=== PATIENT | female | born 1945 | race Two or more races ===

== ENCOUNTER 2016-12-20 20:01 | Inpatient (IN) | payer MEDICARE, OTHER ==
[~2016-12-20] VITALS: Ht 167.6 cm; Wt 63.2 kg
[2016-12-20 22:13] LABS: Basophils # (auto) 0 uL; Basophils % (auto) 0.2 % (0.0-2.0); Eosinophils # (auto) 0 uL; Eosinophils % (auto) 0.1 % (0.0-7.0); Lymphocytes # (auto) 0.9 uL; Lymphocytes % (auto) 5.3 % (10.0-50.0); Monocytes # (auto) 0.8 uL; Monocytes % (auto) 4.4 % (0.0-12.0); Neutrophils # (auto) 15.7 uL; White Blood Cell 17.4 10^3/uL (4.4-10.8)
[2016-12-20 22:18] LABS: Hematocrit 37.7 % (36.0-46.0); Hemoglobin 12.9 g/dL (12.2-16.2); Mean Corpuscular Hemoglobin 30.2 pg (28.0-32.0); Mean Corpuscular Hgb Conc. 34.3 g/dL (32.0-36.0); Mean Corpuscular Volume 88.1 fL (80.0-100.0); Mean Platelet Volume 7.2 fL (6.9-10.8); Platelet Count (auto) 212 10^3/uL (140-450); Red Cell Distribution Width 13.7 % (11.8-14.3)
[2016-12-20 22:36] LABS: Albumin 3.7 g/dL (3.4-5.0); BUN/Creatinine Ratio 13.2; Bilirubin, Total 0.3 mg/dL (0.2-1.0); Calcium 9.1 mg/dL (8.5-10.1); Potassium 3.7 mmol/L (3.5-5.1); Total Protein 8.1 g/dL (6.4-8.2)
[2016-12-20 23:57] LABS: INR 0.95 (0.9-1.15); Partial Thromboplastin Time 24.5 sec (22.64-33.71); Prothrombin Time 10.4 sec (9.37-12.3)
[2016-12-21] MEDS ORDERED: IOHEXOL 300 MG/ML 100ML BOTTLE IJ ONE ×2 (00:07→18:13)
[2016-12-21] MEDS ORDERED: ONDANSETRON HCL 4 MG/2 ML VIAL IV ONE (01:30)
[2016-12-21] MEDS ORDERED: ACETAMINOPHEN 325 MG TAB PO ONE (01:30)
[2016-12-21 01:36] LABS: Urine Bilirubin Negative (Negative); Urine Blood 2+ /uL (Negative); Urine Color Yellow (Yellow); Urine Glucose Normal (Normal); Urine Ketone Negative (Negative); Urine Mucus FEW (None Seen); Urine Nitrite Negative (Negative); Urine RBC 225 /hpf (0 - 4); Urine Urobilinogen Normal (Negative)
[2016-12-21] MEDS ORDERED: SODIUM CHLORIDE 0.9% 250 ML IV ONE (01:45)
[2016-12-21] MEDS ORDERED: SODIUM CHLORIDE 0.9% 1,000 ML IV ONE ×2 (01:45)
[2016-12-21] MEDS ORDERED: cefTRIAXone 1GM/50ML D5W 50 ML IV ONE (02:00)
[2016-12-21 03:50] LABS: Lactic Acid w/Reflex 4.5 mmol/L (0.4-2.0)
[2016-12-21 03:52] LABS: REFLEX LACTIC ACID YES OR NO YES
[2016-12-21] MEDS ORDERED: PIPERACILLIN-TAZOB 3.375GM 100 ML IV ONE (08:45)
[2016-12-21] MEDS ORDERED: HYDROcodone-ACET 5/325MG TAB PO PRN ×2 (08:45→09:15)
[2016-12-21] MEDS ORDERED: PROMETHAZINE HCL 25 MG/ML 1ML IV PRN (08:45)
[2016-12-21] MEDS ORDERED: TEMAZEPAM 15 MG CAP PO PRN (08:45)
[2016-12-21] MEDS ORDERED: ACETAMINOPHEN 500 MG TAB PO PRN (08:45)
[2016-12-21] MEDS ORDERED: LORazepam 0.5 MG TAB PO PRN (08:45)
[2016-12-21] MEDS ORDERED: MORPHINE SULF INJ 2 MG/ML SYRINGE 1ML IV PRN ×2 (08:45)
[2016-12-21] MEDS ORDERED: NITROGLYCERIN 0.4 MG SL TAB SL PRN (08:45)
[2016-12-21] MEDS ORDERED: BISACODYL 10 MG RECT SUPP PR PRN (09:00)
[2016-12-21] MEDS ORDERED: BACLOFEN 10 MG TAB PO PRN (09:00)
[2016-12-21] MEDS ORDERED: MILK OF MAGNESIA 30ML SUSP PO PRN (09:00)
[2016-12-21] MEDS ORDERED: ARTIFICIAL TEARS 15ml EACHEYE PRN (09:15)
[2016-12-21] MEDS ORDERED: ACETAMINOPHEN 650 mg PER 20 mL UD PO PRN (09:15)
[2016-12-21] MEDS ORDERED: LACTULOSE 20Gm/30ML SOLN PO PRN ×2 (09:15)
[2016-12-21] MEDS ORDERED: BIOT1CAP OR (09:22)
[2016-12-21] MEDS ORDERED: BACL20TA PO (09:22)
[2016-12-21] MEDS ORDERED: ASCO500T11 PO (09:22)
[2016-12-21] MEDS ORDERED: FAM20T PO (09:22)
[2016-12-21] MEDS ORDERED: D-MAPOW8 OR (09:22)
[2016-12-21] MEDS ORDERED: DIAZ2TAB PO (09:22)
[2016-12-21] MEDS ORDERED: CALCTAB5 OR (09:22)
[2016-12-21] MEDS: SODIUM CHLORIDE 0.9% 1,000 ML IV SCH ×2 (09:40→18:51)
[2016-12-21] MEDS: CALCIUM W/VIT D (600MG/400IU) TAB PO SCH ×2 (09:40→20:23)
[2016-12-21] MEDS: FLUTICASONE PROP NASAL SPR 0.05 % (50MCG) 16GM EACHNOSTRI SCH (09:40)
[2016-12-21] MEDS: ASCORBIC ACID 500 MG TAB PO SCH ×2 (09:40→20:23)
[2016-12-21] MEDS: MULTIPLE VITAMINS W/ MINERALS TAB PO SCH (09:40)
[2016-12-21] MEDS: FAMOTIDINE (10MG/ML) 2ML VL IV SCH ×2 (09:40→20:23)
[2016-12-21 11:15] VITALS: BP 110/56
[2016-12-21 13:51] VITALS: BP 107/59
[2016-12-21] MEDS: DIAZEPAM 2 MG TAB PO SCH ×2 (14:15→20:23)
[2016-12-21] MEDS: PIPERACILLIN-TAZOB 3.375GM 100 ML IV SCH ×2 (14:29→20:23)
[2016-12-21] MEDS ORDERED: LIDOCAINE 2%HCL (LOCAL ANESTH.) INJ 20ML MDV ONE (17:05)
[2016-12-21] MEDS ORDERED: fentaNYL Drip 2500mCg/250mlNS 250 ML IV ONE (17:23)
[2016-12-21 17:26] VITALS: BP 117/61
[2016-12-21 18:50] VITALS: BP 114/82
[2016-12-21 22:00] VITALS: BP 111/53
[2016-12-22] MEDS: PIPERACILLIN-TAZOB 3.375GM 100 ML IV SCH ×4 (03:27→21:53)
[2016-12-22 04:37] VITALS: BP 128/60
[2016-12-22] MEDS: SODIUM CHLORIDE 0.9% 1,000 ML IV SCH (04:59)
[2016-12-22] MEDS: DIAZEPAM 2 MG TAB PO SCH (06:21)
[2016-12-22 06:23] LABS: Hematocrit 26.8 % (36.0-46.0); Mean Corpuscular Hemoglobin 30.7 pg (28.0-32.0); Mean Corpuscular Hgb Conc. 33.7 g/dL (32.0-36.0); Mean Corpuscular Volume 91.1 fL (80.0-100.0); Mean Platelet Volume 7.1 fL (6.9-10.8); Platelet Count (auto) 110 10^3/uL (140-450); Red Cell Distribution Width 14.2 % (11.8-14.3)
[2016-12-22 06:33] LABS: Promyelocytes % 0; Reactive Lymphocytes 0
[2016-12-22 06:59] LABS: Calcium 7.5 mg/dL (8.5-10.1); Potassium 3.4 mmol/L (3.5-5.1)
[2016-12-22 07:03] LABS: Albumin 2.3 g/dL (3.4-5.0); BUN/Creatinine Ratio 13.2
[2016-12-22 07:05] LABS: Bilirubin, Total 0.4 mg/dL (0.2-1.0); Total Protein 5.9 g/dL (6.4-8.2)
[2016-12-22 08:33] VITALS: BP 129/62
[2016-12-22 09:04] LABS: Metamyelocytes % 1; Myelocytes % 1; Platelet Estimate Decreased
[2016-12-22] MEDS: CALCIUM W/VIT D (600MG/400IU) TAB PO SCH ×2 (10:04→21:54)
[2016-12-22] MEDS: FAMOTIDINE (10MG/ML) 2ML VL IV SCH ×2 (10:04→21:53)
[2016-12-22] MEDS: FLUTICASONE PROP NASAL SPR 0.05 % (50MCG) 16GM EACHNOSTRI SCH (10:05)
[2016-12-22] MEDS: MULTIPLE VITAMINS W/ MINERALS TAB PO SCH (10:05)
[2016-12-22] MEDS: ASCORBIC ACID 500 MG TAB PO SCH ×2 (10:05→21:54)
[2016-12-22] MEDS ORDERED: VANCOMYCIN PER PHARMACY 0 MG IV SCH (10:45)
[2016-12-22] MEDS ORDERED: SOD CHL 0.9%/ KCL 20MEQ 1,000 ML IV SCH (10:45)
[2016-12-22] MEDS ORDERED: SODIUM BICARBONATE 50ML VIAL 50 ML in SOD CHL 0.45% WITH 20MEQ KCL 1,000 ML IV SCH (11:00)
[2016-12-22] MEDS ORDERED: HYOSCYAMINE SULF 0.125 MG TAB SL PRN (11:15)
[2016-12-22] MEDS ORDERED: ONDANSETRON HCL 4 MG/2 ML VIAL IV PRN (11:15)
[2016-12-22] MEDS ORDERED: LORazepam 2MG/ML-1ML VIAL IV PRN (11:15)
[2016-12-22] MEDS ORDERED: DIAZEPAM 2 MG TAB PO PRN (12:00)
[2016-12-22] MEDS: BOOST PLUS 8 ounce PO SCH ×2 (12:00→18:00)
[2016-12-22] MEDS: VANCOMYCIN 1,250 MG in D5W 5% 250 ML IV SCH (12:38)
[2016-12-22 13:00] VITALS: BP 125/59
[2016-12-22 16:37] VITALS: BP 135/65
[2016-12-22 20:00] VITALS: BP 142/72
[2016-12-23] MEDS: PIPERACILLIN-TAZOB 3.375GM 100 ML IV SCH ×4 (03:40→21:53)
[2016-12-23 06:16] VITALS: BP 157/84
[2016-12-23] MEDS: BOOST PLUS 8 ounce PO SCH ×3 (08:00→17:40)
[2016-12-23 08:32] LABS: Basophils # (auto) 0 uL; Basophils % (auto) 0.2 % (0.0-2.0); Eosinophils # (auto) 0.4 uL; Eosinophils % (auto) 1.7 % (0.0-7.0); Hematocrit 26.3 % (36.0-46.0); Lymphocytes # (auto) 1.2 uL; Lymphocytes % (auto) 5.1 % (10.0-50.0); Mean Corpuscular Hemoglobin 30.4 pg (28.0-32.0); Mean Corpuscular Hgb Conc. 34.3 g/dL (32.0-36.0); Mean Corpuscular Volume 88.5 fL (80.0-100.0); Mean Platelet Volume 7.7 fL (6.9-10.8); Monocytes # (auto) 0.7 uL; Monocytes % (auto) 3.3 % (0.0-12.0); Neutrophils # (auto) 20.3 uL; Neutrophils % (auto) 89.7 % (37.0-80.0); Platelet Count (auto) 114 10^3/uL (140-450); Red Cell Distribution Width 13.9 % (11.8-14.3); White Blood Cell 22.6 10^3/uL (4.4-10.8)
[2016-12-23 08:56] LABS: Albumin 2.4 g/dL (3.4-5.0); BUN/Creatinine Ratio 15.5; Bilirubin, Total 0.5 mg/dL (0.2-1.0); Calcium 8.4 mg/dL (8.5-10.1); Phosphorus 1.5 mg/dL (2.5-4.90); Potassium 3.1 mmol/L (3.5-5.1); Total Protein 6.1 g/dL (6.4-8.2); Uric Acid 4.1 mg/dL (2.6-6.0)
[2016-12-23 09:00] VITALS: BP 148/76
[2016-12-23] MEDS: FAMOTIDINE (10MG/ML) 2ML VL IV SCH ×2 (10:34→21:53)
[2016-12-23] MEDS: ASCORBIC ACID 500 MG TAB PO SCH ×2 (10:34→21:53)
[2016-12-23] MEDS: CALCIUM W/VIT D (600MG/400IU) TAB PO SCH ×2 (10:34→21:53)
[2016-12-23] MEDS: MULTIPLE VITAMINS W/ MINERALS TAB PO SCH (10:34)
[2016-12-23] MEDS: SODIUM BICARBONATE 50ML VIAL 50 ML in SOD CHL 0.45% WITH 20MEQ KCL 1,000 ML IV SCH ×2 (10:56→18:03)
[2016-12-23 12:00] VITALS: BP 146/73
[2016-12-23] MEDS: POTASSIUM CHL 20 Meq TABLET PO SCH ×2 (13:35→17:39)
[2016-12-23] MEDS: FLUTICASONE PROP NASAL SPR 0.05 % (50MCG) 16GM EACHNOSTRI SCH (14:57)
[2016-12-23 17:35] VITALS: BP 148/72
[2016-12-23 20:59] VITALS: BP 157/78
[2016-12-24] MEDS: VANCOMYCIN 1,250 MG in D5W 5% 250 ML IV SCH (00:35)
[2016-12-24 05:34] VITALS: BP 155/73
[2016-12-24] MEDS: PIPERACILLIN-TAZOB 3.375GM 100 ML IV SCH ×3 (07:00→18:58)
[2016-12-24] MEDS: BOOST PLUS 8 ounce PO SCH ×3 (08:00→18:11)
[2016-12-24 08:23] LABS: Albumin 2.3 g/dL (3.4-5.0); Bilirubin, Total 0.6 mg/dL (0.2-1.0); Calcium 8.6 mg/dL (8.5-10.1); Total Protein 6.1 g/dL (6.4-8.2)
[2016-12-24 08:43] VITALS: BP 157/77
[2016-12-24] MEDS: CALCIUM W/VIT D (600MG/400IU) TAB PO SCH ×2 (10:03→21:56)
[2016-12-24] MEDS: MULTIPLE VITAMINS W/ MINERALS TAB PO SCH (10:03)
[2016-12-24] MEDS: DOCUSATE SOD 100 MG CAP PO PRN (10:03)
[2016-12-24] MEDS: FAMOTIDINE (10MG/ML) 2ML VL IV SCH ×2 (10:03→21:56)
[2016-12-24] MEDS: ASCORBIC ACID 500 MG TAB PO SCH ×2 (10:03→21:57)
[2016-12-24] MEDS: SODIUM BICARBONATE 50ML VIAL 50 ML in SOD CHL 0.45% WITH 20MEQ KCL 1,000 ML IV SCH ×2 (10:04→18:53)
[2016-12-24] MEDS: FLUTICASONE PROP NASAL SPR 0.05 % (50MCG) 16GM EACHNOSTRI SCH (11:26)
[2016-12-24 12:01] VITALS: BP 158/80
[2016-12-24 16:33] VITALS: BP 152/79
[2016-12-24 22:00] VITALS: BP 154/77
[2016-12-25] MEDS: PIPERACILLIN-TAZOB 3.375GM 100 ML IV SCH ×4 (01:10→18:54)
[2016-12-25] MEDS: SODIUM BICARBONATE 50ML VIAL 50 ML in SOD CHL 0.45% WITH 20MEQ KCL 1,000 ML IV SCH ×2 (04:45→15:28)
[2016-12-25 05:00] VITALS: BP 158/81
[2016-12-25 07:21] LABS: Basophils # (auto) 0 uL; Basophils % (auto) 0.4 % (0.0-2.0); Eosinophils # (auto) 0.2 uL; Eosinophils % (auto) 2.3 % (0.0-7.0); Hematocrit 29.1 % (36.0-46.0); Lymphocytes # (auto) 1.4 uL; Lymphocytes % (auto) 13.4 % (10.0-50.0); Mean Corpuscular Hemoglobin 30.6 pg (28.0-32.0); Mean Corpuscular Hgb Conc. 34.5 g/dL (32.0-36.0); Mean Corpuscular Volume 88.9 fL (80.0-100.0); Mean Platelet Volume 7.7 fL (6.9-10.8); Monocytes # (auto) 0.8 uL; Monocytes % (auto) 7.9 % (0.0-12.0); Neutrophils # (auto) 7.9 uL; Platelet Count (auto) 169 10^3/uL (140-450); Red Cell Distribution Width 13.6 % (11.8-14.3); White Blood Cell 10.4 10^3/uL (4.4-10.8)
[2016-12-25 07:29] LABS: INR 0.94 (0.9-1.15); Partial Thromboplastin Time 25.2 sec (22.64-33.71); Prothrombin Time 10.2 sec (9.37-12.3)
[2016-12-25 07:47] LABS: Albumin 2.5 g/dL (3.4-5.0); BUN/Creatinine Ratio 11.5; Bilirubin, Total 0.7 mg/dL (0.2-1.0); Potassium 3.7 mmol/L (3.5-5.1); Total Protein 6.7 g/dL (6.4-8.2)
[2016-12-25] MEDS: BOOST PLUS 8 ounce PO SCH ×3 (08:00→17:44)
[2016-12-25 08:50] VITALS: BP 155/71
[2016-12-25] MEDS ORDERED: fentaNYL CITRATE 100 MCG/2 ML VL ONE (09:09)
[2016-12-25] MEDS ORDERED: ONDANSETRON HCL 4 MG/2 ML VIAL ONE (09:09)
[2016-12-25] MEDS ORDERED: MIDAZOLAM HCL 1MG/1ML-2 ML VIAL ONE (09:09)
[2016-12-25] MEDS ORDERED: SODIUM CHLORIDE LOCK 10 ML ONE (09:09)
[2016-12-25] MEDS ORDERED: PROPOFOL 10 MG/ML 20 ML IV ONE (09:09)
[2016-12-25] MEDS: ASCORBIC ACID 500 MG TAB PO SCH ×2 (10:00→22:38)
[2016-12-25] MEDS: FAMOTIDINE (10MG/ML) 2ML VL IV SCH ×2 (10:00→22:38)
[2016-12-25] MEDS: FLUTICASONE PROP NASAL SPR 0.05 % (50MCG) 16GM EACHNOSTRI SCH (10:00)
[2016-12-25] MEDS: MULTIPLE VITAMINS W/ MINERALS TAB PO SCH (10:00)
[2016-12-25] MEDS: CALCIUM W/VIT D (600MG/400IU) TAB PO SCH ×2 (10:00→22:39)
[2016-12-25] MEDS ORDERED: METOCLOPRAMIDE HCL 5MG/ml INJ 2ml VIAL IV ONE (10:30)
[2016-12-25] MEDS ORDERED: fentaNYL CITRATE 100 MCG/2 ML VL IV ONE (11:00)
[2016-12-25] MEDS: VANCOMYCIN 1,250 MG in D5W 5% 250 ML IV SCH (12:45)
[2016-12-25 12:59] VITALS: BP 155/88
[2016-12-25] MEDS ORDERED: METOPROLOL TARTRATE 25 MG TAB PO ONE (15:45)
[2016-12-25 17:04] VITALS: BP 131/65
[2016-12-25 21:25] VITALS: BP 156/69
[2016-12-25] MEDS: DOCUSATE SOD 100 MG CAP PO PRN (22:39)
[2016-12-26] MEDS: PIPERACILLIN-TAZOB 3.375GM 100 ML IV SCH ×4 (01:00→19:02)
[2016-12-26] MEDS: SODIUM BICARBONATE 50ML VIAL 50 ML in SOD CHL 0.45% WITH 20MEQ KCL 1,000 ML IV SCH ×3 (01:45→22:49)
[2016-12-26 05:33] VITALS: BP 140/71
[2016-12-26] MEDS: BOOST PLUS 8 ounce PO SCH ×3 (08:41→18:24)
[2016-12-26 08:55] VITALS: BP 152/75
[2016-12-26] MEDS: FLUTICASONE PROP NASAL SPR 0.05 % (50MCG) 16GM EACHNOSTRI SCH (09:27)
[2016-12-26] MEDS: FAMOTIDINE (10MG/ML) 2ML VL IV SCH ×2 (09:27→21:51)
[2016-12-26] MEDS: MULTIPLE VITAMINS W/ MINERALS TAB PO SCH (09:28)
[2016-12-26] MEDS: ASCORBIC ACID 500 MG TAB PO SCH ×2 (09:28→21:51)
[2016-12-26] MEDS: CALCIUM W/VIT D (600MG/400IU) TAB PO SCH ×2 (09:28→21:51)
[2016-12-26 09:47] LABS: Basophils # (auto) 0.1 uL; Basophils % (auto) 0.5 % (0.0-2.0); Eosinophils # (auto) 0.5 uL; Eosinophils % (auto) 4.9 % (0.0-7.0); Hematocrit 28.4 % (36.0-46.0); Hemoglobin 9.8 g/dL (12.2-16.2); Lymphocytes # (auto) 1.8 uL; Lymphocytes % (auto) 19.2 % (10.0-50.0); Mean Corpuscular Hemoglobin 30.6 pg (28.0-32.0); Mean Corpuscular Hgb Conc. 34.3 g/dL (32.0-36.0); Mean Corpuscular Volume 89.3 fL (80.0-100.0); Mean Platelet Volume 7.7 fL (6.9-10.8); Monocytes # (auto) 1.3 uL; Monocytes % (auto) 13.4 % (0.0-12.0); Neutrophils # (auto) 5.8 uL; Platelet Count (auto) 187 10^3/uL (140-450); Red Cell Distribution Width 13.5 % (11.8-14.3); White Blood Cell 9.4 10^3/uL (4.4-10.8)
[2016-12-26 12:45] VITALS: BP 164/97
[2016-12-26 16:10] LABS: Vitamin D 25-Hydroxy 31 ng/mL (.); Vitamin D-2 25-Hydroxy <1.0 ng/mL (.)
[2016-12-26 16:26] VITALS: BP 142/68
[2016-12-26 22:00] VITALS: BP 151/78
[2016-12-26] MEDS: VANCOMYCIN 1,250 MG in D5W 5% 250 ML IV SCH (23:45)
[2016-12-27] MEDS: PIPERACILLIN-TAZOB 3.375GM 100 ML IV SCH ×3 (00:51→13:00)
[2016-12-27 05:00] VITALS: BP 138/74
[2016-12-27] MEDS: BOOST PLUS 8 ounce PO SCH ×2 (08:00→12:16)
[2016-12-27 08:29] VITALS: BP 148/76
[2016-12-27] MEDS: SODIUM BICARBONATE 50ML VIAL 50 ML in SOD CHL 0.45% WITH 20MEQ KCL 1,000 ML IV SCH (09:15)
[2016-12-27] MEDS: FLUTICASONE PROP NASAL SPR 0.05 % (50MCG) 16GM EACHNOSTRI SCH (09:30)
[2016-12-27] MEDS: CALCIUM W/VIT D (600MG/400IU) TAB PO SCH (09:30)
[2016-12-27] MEDS: ASCORBIC ACID 500 MG TAB PO SCH (09:30)
[2016-12-27] MEDS: FAMOTIDINE (10MG/ML) 2ML VL IV SCH (09:30)
[2016-12-27] MEDS: MULTIPLE VITAMINS W/ MINERALS TAB PO SCH (09:30)
[2016-12-27 13:30] VITALS: BP 144/83
[2016-12-27 15:32] VITALS: BP 144/83
== END 2016-12-27 16:15 | DRG 871 ==
LOC: EDBD 20:01 → ER 20:12 → TELE 20:13 → TELE-E-ADS 12-21 10:54 → TELE-EAST 12-21 12:18 → TELE-CENTR 12-21 19:13
PROVIDERS: ADMIT Internal Medicine; ATTEND Internal Medicine Pulmonary Disease
PROC: 0T933ZZ Drainage of Right Kidney Pelvis, Percutaneous Approach (ICD-10-PCS; principal; 2016-12-21)
PROC: 0TF6XZZ Fragmentation in Right Ureter, External Approach (ICD-10-PCS; 2016-12-25)
DX: A41.9 Sepsis, unspecified organism (principal); N17.0 Acute kidney failure with tubular necrosis; N39.0 Urinary tract infection, site not specified; N13.2 Hydronephrosis with renal and ureteral calculous obstruction; E44.0 Moderate protein-calorie malnutrition; J98.11 Atelectasis; Z66 Do not resuscitate; T83.098A Other mechanical complication of other urinary catheter, initial encounter; Y84.8 Other medical procedures as the cause of abnormal reaction of the patient, or of later complication, without mention of misadventure at the time of the procedure; E87.6 Hypokalemia; B95.2 Enterococcus as the cause of diseases classified elsewhere; B96.5 Pseudomonas (aeruginosa) (mallei) (pseudomallei) as the cause of diseases classified elsewhere; G35 Multiple sclerosis; G83.9 Paralytic syndrome, unspecified; I73.9 Peripheral vascular disease, unspecified; K76.89 Other specified diseases of liver; K80.20 Calculus of gallbladder without cholecystitis without obstruction; N25.89 Other disorders resulting from impaired renal tubular function; Z93.3 Colostomy status; Y92.89 Other specified places as the place of occurrence of the external cause; Z79.899 Other long term (current) drug therapy
CPT/HCPCS: 10022; 10030; 36415; 51702; 71010; 74000; 74150; 74176; 76942; 77012; 80053; 80202; 81001; 82306; 82570; 83605; 83735; 83970; 84100; 84156; 84300; 84484; 84550; 85007; 85025; 85027; 85379; 85610; 85730; 87040; 87077; 87081; 87086; 87186; 93005; 93970; 96361; 96365; 96375; 97110; 97163; C1729; J0696; J1642; J2250; J2405; J2543; J2704; J3010; J3490; J7060

== ENCOUNTER → 2017-01-24 | Outpatient (CLI) | payer MEDICARE ==
[~2017-01-24] MED LIST: ASCO500T11 PO; BACL20TA PO; BIOT1CAP OR; CALCTAB5 OR; D-MAPOW8 OR; DIAZ2TAB PO; FAM20T PO; IOHEXOL 300 MG/ML 100ML BOTTLE IJ ONE; LIDOCAINE 2%HCL (LOCAL ANESTH.) INJ 20ML MDV ONE
== END | disposition home or self-care (01) ==
LOC: XY 12:18
PROVIDERS: ATTEND Urology
DX: N20.0 Calculus of kidney (principal); N20.1 Calculus of ureter; Z93.6 Other artificial openings of urinary tract status; Z87.442 Personal history of urinary calculi
CPT/HCPCS: 76000; Q9967

== ENCOUNTER 2017-08-08 10:03 | Emergency (ER) | payer MEDICARE, MEDICAID ==
[~2017-08-08] VITALS: Ht 165.1 cm; Wt 54.4 kg
[~2017-08-08 10:03] MED LIST changes: -IOHEXOL 300 MG/ML 100ML BOTTLE IJ ONE; -LIDOCAINE 2%HCL (LOCAL ANESTH.) INJ 20ML MDV ONE
[2017-08-08 10:50] LABS: Basophils # (auto) 0 uL; Basophils % (auto) 0.6 % (0.0-2.0); Eosinophils # (auto) 0.1 uL; Eosinophils % (auto) 0.9 % (0.0-7.0); Hematocrit 38.7 % (36.0-46.0); Hemoglobin 13.2 g/dL (12.2-16.2); Lymphocytes # (auto) 1.7 uL; Lymphocytes % (auto) 31.4 % (10.0-50.0); Mean Corpuscular Hemoglobin 30.4 pg (28.0-32.0); Mean Corpuscular Hgb Conc. 34.2 g/dL (32.0-36.0); Mean Corpuscular Volume 88.9 fL (80.0-100.0); Monocytes # (auto) 0.3 uL; Neutrophils # (auto) 3.4 uL; Neutrophils % (auto) 62.1 % (37.0-80.0); Platelet Count (auto) 239 10^3/uL (140-450); Red Blood Cells 4.35 10^6/uL (4.0-5.20); Red Cell Distribution Width 13.9 % (11.8-14.3); White Blood Cell 5.5 10^3/uL (4.4-10.8)
[2017-08-08 11:10] LABS: Albumin 4.2 g/dL (3.4-5.0); BUN/Creatinine Ratio 19.5; Bilirubin, Total 0.4 mg/dL (0.2-1.0); Calcium 9.9 mg/dL (8.5-10.1); Potassium 3.2 mmol/L (3.5-5.1); Total Protein 8.7 g/dL (6.4-8.2)
[2017-08-08 11:47] LABS: Urine Amorphous Crystal FEW /hpf (None Seen); Urine Bacteria MANY /hpf (None Seen); Urine Blood Negative /uL (Negative); Urine Specific Gravity 1.008 (1.001-1.035); Urine WBC 13 /hpf (0 - 5)
[2017-08-08] MEDS ORDERED: cefTRIAXone 1GM/10ml IVPUSH 10 ML IV ONE (12:30)
[2017-08-08] MEDS ORDERED: cefTRIAXone SOD 500 MG VL IM ONE (13:00)
[2017-08-08] MEDS ORDERED: LIDOCAINE 2% (LOCAL ANESTH.) PF 5ml SDV IJ ONE (13:00)
[2017-08-08] MEDS ORDERED: LIDOCAINE 2% (LOCAL ANESTH.) PF 5ml SDV ONE (13:01)
[2017-08-08] MEDS ORDERED: cefTRIAXone SOD 1,000 MG VL ONE (13:02)
[2017-08-08] MEDS ORDERED: cefTRIAXone SOD 1,000 MG VL IM ONE (13:15)
[2017-08-08 19:16] VITALS: BP 133/76
== END 2017-08-08 19:17 | disposition home or self-care (01) ==
LOC: ER 10:03 → EDBD 10:03 → ER 19:17
DX: N39.0 Urinary tract infection, site not specified (principal); R06.02 Shortness of breath; G82.50 Quadriplegia, unspecified; Z93.3 Colostomy status
CPT/HCPCS: 36415; 71045; 80053; 81001; 85025; 96372; 99285; J0696

== ENCOUNTER 2017-09-04 10:42 | Inpatient (IN) | payer MEDICARE, MEDICAID ==
[2017-09-03 14:48] LABS: Basophils # (auto) 0 uL; Basophils % (auto) 0.3 % (0.0-2.0); Eosinophils # (auto) 0 uL; Eosinophils % (auto) 0.5 % (0.0-7.0); Hematocrit 37.8 % (36.0-46.0); Hemoglobin 12.7 g/dL (12.2-16.2); Lymphocytes # (auto) 2.1 uL; Lymphocytes % (auto) 23.1 % (10.0-50.0); Mean Corpuscular Hemoglobin 30.2 pg (28.0-32.0); Mean Corpuscular Hgb Conc. 33.7 g/dL (32.0-36.0); Mean Corpuscular Volume 89.7 fL (80.0-100.0); Monocytes # (auto) 0.5 uL; Monocytes % (auto) 5.4 % (0.0-12.0); Neutrophils # (auto) 6.5 uL; Neutrophils % (auto) 70.7 % (37.0-80.0); Nucleated Red Blood Cells % 0.1 %; Platelet Count (auto) 276 10^3/uL (140-450); Red Blood Cells 4.21 10^6/uL (4.0-5.20); Red Cell Distribution Width 13.8 % (11.8-14.3); White Blood Cell 9.2 10^3/uL (4.4-10.8)
[2017-09-03 15:05] LABS: Albumin 3.7 g/dL (3.4-5.0); BUN/Creatinine Ratio 14.5; Bilirubin, Total 0.4 mg/dL (0.2-1.0); Calcium 10.4 mg/dL (8.5-10.1); Potassium 3.4 mmol/L (3.5-5.1); Total Protein 8.5 g/dL (6.4-8.2)
[2017-09-03 15:06] LABS: INR 0.93 (0.9-1.15); Partial Thromboplastin Time 24.7 sec (23.78-33.04)
[~2017-09-04] VITALS: Ht 167.6 cm; Wt 58.6 kg
[~2017-09-04 10:42] MED LIST changes: +DOCU-94 PO; +FLUT1SPR5; +HYDR-4683 PO; +MULTTAB61 PO; +[UNRECOGNIZED DRUG - CODE] OR
[2017-09-04] MEDS ORDERED: ceFAZolin 1GM/50ML 50 ML IV ONE (11:26)
[2017-09-04] MEDS ORDERED: fentaNYL CITRATE 100 MCG/2 ML VL ONE ×2 (12:25→13:54)
[2017-09-04] MEDS ORDERED: PROPOFOL 10 MG/ML 20 ML IV ONE (12:25)
[2017-09-04] MEDS ORDERED: ONDANSETRON HCL 4 MG/2 ML VIAL ONE (12:25)
[2017-09-04] MEDS ORDERED: SODIUM CHLORIDE LOCK 10 ML ONE (12:25)
[2017-09-04] MEDS ORDERED: MIDAZOLAM HCL 1MG/1ML-2 ML VIAL ONE (12:25)
[2017-09-04] MEDS ORDERED: LIDOCAINE W/ EPINEPHRINE 1% 20ML VIAL ONE ×2 (13:02→13:35)
[2017-09-04] MEDS ORDERED: METOCLOPRAMIDE HCL 5MG/ml INJ 2ml VIAL IV ONE (14:00)
[2017-09-04] MEDS ORDERED: fentaNYL CITRATE 100 MCG/2 ML VL IV ONE (14:00)
[2017-09-04] MEDS: fentaNYL CITRATE 100 MCG/2 ML VL IV PRN ×2 (14:35→15:09)
[2017-09-04 17:05] VITALS: BP 142/94
[2017-09-04 20:00] VITALS: BP 132/78
[2017-09-04] MEDS: CALCIUM CARB 500 MG CHEW TAB PO SCH (21:57)
[2017-09-04] MEDS: DOCUSATE SOD 100 MG CAP PO SCH (21:58)
[2017-09-04] MEDS: ASCORBIC ACID 500 MG TAB PO SCH (21:58)
[2017-09-04 22:00] VITALS: BP 132/78
[2017-09-05] VITALS (8 sets, daily range): BP systolic 121–143; BP diastolic 59–74
[2017-09-05] MEDS ORDERED: BACLOFEN 10 MG TAB PO PRN
[2017-09-05] MEDS: ACETAMINOPHEN 325 MG TAB PO PRN ×3 (00:51→20:12)
[2017-09-05] MEDS: MULTIPLE VITAMIN TAB PO SCH (09:30)
[2017-09-05] MEDS: DOCUSATE SOD 100 MG CAP PO SCH ×2 (09:30→21:42)
[2017-09-05] MEDS: ASCORBIC ACID 500 MG TAB PO SCH ×2 (09:30→21:41)
[2017-09-05] MEDS: FAMOTIDINE 20 MG TAB PO SCH (09:30)
[2017-09-05] MEDS: CALCIUM CARB 500 MG CHEW TAB PO SCH ×2 (09:30→21:41)
[2017-09-05] MEDS: BOOST PLUS 8 ounce PO SCH (17:00)
[2017-09-06] MEDS: ACETAMINOPHEN 325 MG TAB PO PRN (03:56)
[2017-09-06 04:43] VITALS: BP 144/65
[2017-09-06] MEDS: BOOST PLUS 8 ounce PO SCH (08:00)
[2017-09-06] MEDS: FAMOTIDINE 20 MG TAB PO SCH (09:46)
[2017-09-06] MEDS: CALCIUM CARB 500 MG CHEW TAB PO SCH (09:46)
[2017-09-06] MEDS: ASCORBIC ACID 500 MG TAB PO SCH (09:46)
[2017-09-06] MEDS: MULTIPLE VITAMIN TAB PO SCH (09:46)
[2017-09-06] MEDS: DOCUSATE SOD 100 MG CAP PO SCH (09:46)
== END 2017-09-06 11:25 | DRG 920 ==
LOC: SUR 10:42 → TELE-EAST 10:43 → EAST 19:02
PROVIDERS: ADMIT Surgery; ATTEND Family Medicine
PROC: 05PY33Z Removal of Infusion Device from Upper Vein, Percutaneous Approach (ICD-10-PCS; 2017-09-04)
PROC: 0JPT0WZ Removal of Totally Implantable Vascular Access Device from Trunk Subcutaneous Tissue and Fascia, Open Approach (ICD-10-PCS; principal; 2017-09-04 12:45)
DX: T85.698A Other mechanical complication of other specified internal prosthetic devices, implants and grafts, initial encounter (principal); I96 Gangrene, not elsewhere classified; G35 Multiple sclerosis; I70.0 Atherosclerosis of aorta; Y83.8 Other surgical procedures as the cause of abnormal reaction of the patient, or of later complication, without mention of misadventure at the time of the procedure; Z93.3 Colostomy status; Z88.8 Allergy status to other drugs, medicaments and biological substances; Y92.89 Other specified places as the place of occurrence of the external cause
CPT/HCPCS: 36415; 71045; 80053; 85025; 85610; 85730; 87081; J0690; J2250; J2405; J2704